=== PATIENT | male | born 1995 | race Caucasian/White ===

== ENCOUNTER 2022-02-22 15:13 | Emergency (ER) | payer SELFPAY ==
[2022-02-22 20:00] LABS: HEMOGLOBIN 15.9 gm/dl (14.0-17.5); RED BLOOD COUNT 5.19 M/UL (4.20-5.50); WHITE BLOOD COUNT 11.3 K/UL (4.5-11.0)
[2022-02-22 20:18] LABS: BUN/CREATININE RATIO 10 (0-10)
[2022-02-22] MEDS ORDERED: ZOFRAN ODT 4 MG4 MG PO (21:31)
== END 2022-02-22 21:45 | disposition home or self-care (01) ==
LOC: ER1 15:13
PROVIDERS: Family Medicine
DX: R53.1 Weakness (principal); R10.10 Upper abdominal pain, unspecified; Z20.822 Contact with and (suspected) exposure to COVID-19
CPT/HCPCS: 0240U; 80053; 81001; 83690; 85025; 96374; 99284; J2405